=== PATIENT | female | born 1970 | race Caucasian/White ===

== ENCOUNTER 2023-07-12 14:56 | Emergency (ER) | payer MEDICAID, SELFPAY ==
--- NOTE | 2023-07-12 15:14 | CTR_ITS ---
PROCEDURE INFORMATION: Exam: CT Head Without Contrast Exam date and time: 07/12/2023 3:52 PM Age: 53 years old Clinical indication: Injury or trauma; Fall; Blunt trauma (contusions or hematomas); Additional info: Trauma/fall/headache TECHNIQUE: Imaging protocol: Computed tomography of the head without contrast. Radiation optimization: All CT scans at this facility use at least one of these dose optimization techniques: automated exposure control; mA and/or kV adjustment per patient size (includes targeted exams where dose is matched to clinical indication); or iterative reconstruction. COMPARISON: CT head wo con* [id number] 02/16/2017 12:57 PM RADIATION DOSE METRICS: Total DLP (mGy-cm): 1069 FINDINGS: Brain: No intracranial hemorrhage or hematoma is seen. No mass effect or shift of midline structures. Tiny focus of decreased attenuation right basal ganglia previously suggestive of prominent perivascular space is unchanged with prior exam of 2017. No findings to indicate territorial or large vessel ischemic infarct. Slight low-lying cerebellar tonsils as noted with prior exam. No significant change with prior exam. Cerebral ventricles: No significant ventriculomegaly. Paranasal sinuses: Visualized sinuses are unremarkable. No fluid levels. Mastoid air cells: Visualized mastoid air cells are well aerated. Bones/joints: No acute findings. Soft tissues: Unremarkable. CT/CT head wo con* [id number] IMPRESSION: No acute intracranial abnormality, and without acute change from prior exam.
--- NOTE | 2023-07-12 15:14 | CTR_ITS ---
PROCEDURE INFORMATION: Exam: CT Cervical Spine Without Contrast Exam date and time: 07/12/2023 3:52 PM Age: 53 years old Clinical indication: Injury or trauma; Fall; Blunt trauma; Additional info: Fall/head injury TECHNIQUE: Imaging protocol: Computed tomography of the cervical spine without contrast. Radiation optimization: All CT scans at this facility use at least one of these dose optimization techniques: automated exposure control; mA and/or kV adjustment per patient size (includes targeted exams where dose is matched to clinical indication); or iterative reconstruction. COMPARISON: CT head wo con* [id number] 07/12/2023 3:52 PM RADIATION DOSE METRICS: Total DLP (mGy-cm): 137 FINDINGS: Bones/joints: Cervical vertebral body heights appear maintained, as do disc spaces. Straightening of the cervical curvature is seen on the sagittal images. Alignment is otherwise unremarkable. Mild spondylotic change involving cervical vertebra. Cervical spinal canal is patent without significant or severe spinal stenosis. No fracture or subluxation. Lungs: Visualized lung apices appear unremarkable. Soft tissues: Paravertebral soft tissues show no significant abnormality. CT/CT cervical spin wo con* [id number] IMPRESSION: 1. Straightening of the cervical curvature on the sagittal images. This can be associated with muscle spasm/tension. 2. No fracture or subluxation.
[2023-07-12 15:15] VITALS: BP 121/79; PULSE 77; RESP 14; TEMP 36.3; O2SAT 96; BMI 20.2
[2023-07-12] MEDS: ondansetron 2 mg/ML SDV 2 mL 4 MG IM (15:28)
--- NOTE | 2023-07-12 15:38 | ED_ITS ---
HPI - Head Injury General: Chief complaint: Dizziness Stated complaint: hit head wednesday, headache Time Seen by Provider: 07/12/23 15:24 Source: patient Mode of arrival: ambulatory Limitations: no limitations History of Present Illness: Patient is a 53-year-old female presents to ED today for evaluation following a head injury. Patient states yesterday she was squatted down when she stood up and struck the right side of her forehead on a shelf. There was no LOC but patient states she did see stars afterwards. Patient states since then she has had a headache and some light sensitivity as well as nausea and dizziness. She has not had any vomiting. No visual changes. She does have a history of migraines. Denies neck pain. Patient is not on anticoagulation. MD Complaint: head injury Onset (ago): day(s) (yesterday) Mechanism of Injury: other (struck head on shelf) Place: home Loss of Consciousness: no Location of injury: frontal Severity: moderate Quality: burning Radiation: none Other Injuries: none Associated symptoms: Reports nausea; Deny confusion, neck pain or vomiting Review of Systems Const: Denies: fever(s), chills, body aches, fatigue or malaise Eyes: Reports: photophobia; Denies: change in vision, blurry vision, blind spots, floaters or seeing flashes Card: Denies: chest pain, palpitations or lightheadedness Resp: Denies: dyspnea GI: Reports: nausea; Denies: vomiting Musc: Denies: neck pain Neuro: Reports: headache(s) and dizziness; Denies: numbness in extremities, weakness in extremities, sensory changes, lack of coordination, difficulty walking, frequent falls, confusion, behavioral changes, Slurred speech present, difficulty communicating thoughts, seizure-like activity, involuntary movements or restless legs Physical Exam Const: COMMON NORMALS: no acute distress, average body habitus, patient oriented x3, no limitations, alert and well nourished GENERAL APPEARANCE: cooperative ORIENTATION/CONSCIOUSNESS: Yes awake, Yes oriented to person, Yes oriented to place and Yes oriented to time HENMT: COMMON NORMALS: normocephalic and atraumatic HEAD & SCALP: normal to inspection, normocephalic and atraumatic; no Alfonso's sign, no hematoma and no palpable skull fracture FACE & SINUS: normal facial exam Eye: COMMON NORMALS: Equal, round and reactive pupils present and EOMs intact bilaterally GENERAL EYE: appearance normal, both eyes and all related structures and normal light reflex PUPIL: Yes Equal, round and reactive pupils present DIRECT OPHTHALMOSCOPY: Yes normal light reflex Neck/C-Spine: COMMON NORMALS: full ROM GENERAL: Yes normal visual inspection CERVICAL SPINE: No Cervical spine tenderness Neuro: ISAIAS COMA SCALE: document GCS findings Isaias coma scale eye opening: Spontaneous Isaias coma scale verbal response: Orientated [place] coma scale motor response: Obey commands Isaias coma scale total score: 15 COMMON NORMALS: patient oriented x3, CN's II-XII intact bilaterally, moves all extremities, no focal motor deficits, no sensory deficits noted and gait normal SENSORIUM/ORIENTATION: Yes alert, Yes oriented to person, Yes oriented to place and Yes oriented to time Course Vital Signs: Vital signs: Vital Signs Temperature 97.3 F L 07/12/23 15:15 Pulse Rate 77 07/12/23 15:15 Respiratory Rate 14 07/12/23 15:15 Blood Pressure 121/79 07/12/23 15:15 Pulse Oximetry 96 07/12/23 15:15 Oxygen Delivery Me thod Room Air 07/12/23 15:15 MDM - Head Injury Medcial Decision Making Patient here with a minor head injury. CT head/cervical spine are negative. Patient has no neurologic deficits on physical exam. She will be allowed discharge. Requesting prescription for antiemetic medication which was provided. Return to precautions given. Differential Diagnosis Likely closed head injury and postconcussion syndrome Medical Records I reviewed the patient's medical records. Lab Data Radiology Impressions Cervical Spine CT 07/12/23 15:14 IMPRESSION: 1. Straightening of the cervical curvature on the sagittal images. This can be associated with muscle spasm/tension. 2. No fracture or subluxation. Head CT 07/12/23 15:14 IMPRESSION: No acute intracranial abnormality, and without acute change from prior exam. All radiology interpretation(s) finalized by discharge Discharge Plan Discharge Patient Disposition: Home Clinical Impression: Minor closed head injury Condition: Stable Prescriptions: New ondansetron 4 mg tablet,disintegrating 4 mg PO Q8H PRN (Reason: nausea and vomiting) Qty: 14 0RF No Action duloxetine 20 mg capsule,delayed release(DR/EC) 20 mg PO DAILY cyclobenzaprine 5 mg tablet 5 mg PO DAILY PRN acetaminophen [Tylenol Extra Strength] 500 mg tablet 500 mg PO QID PRN fluticasone propionate 50 mcg/actuation spray,suspension 1 spray intranasal DAILY PRN (Reason: allergy symptoms) Qty: 16 0RF Rx Instructions: administer into each nostril clindamycin HCl 300 mg capsule 300 mg PO Q8H 7 Days Qty: 21 0RF doxycycline hyclate 100 mg tablet 100 mg PO BID 7 Days Qty: 14 0RF Discharge Orders: Discharge ED (Routine); Ordered 07/12/23 Ordered By: Elaina Flynn Referrals: Patricia Good MD [Primary Care Provider] - Patient Instructions: Head Injury (DC) Coding Level of Care 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
--- NOTE | 2023-07-12 16:15 | PC.NURSE ---
Pt states she is feeling better after the nausea med
[2023-07-12 16:48] VITALS: BP 128/71; PULSE 71; RESP 18; O2SAT 96
== END 2023-07-12 16:48 | disposition home or self-care (01) ==
PROVIDERS: Emergency Provider Physician Assistant; PCP Family Medicine
DX: S09.8XXA Other specified injuries of head, initial encounter (principal); W22.8XXA Striking against or struck by other objects, initial encounter
CPT/HCPCS: 70450; 72125; 96372; 99284; J2405

== ENCOUNTER 2023-07-29 09:13 | Emergency (ER) | payer MEDICAID, SELFPAY ==
[2023-07-29 09:36] VITALS: BP 122/74; PULSE 65; RESP 18; TEMP 36.9; O2SAT 98; BMI 20.7
--- NOTE | 2023-07-29 10:02 | CT_ITS ---
WS: [id number] CT HEAD NONCONTRAST HISTORY: vance TECHNIQUE: Contiguous axial imaging performed through the brain in 2.5 mm imaging. Bone and soft tiss ue windows. Sagittal and coronal reformats reviewed. All CT scans at [facility] use at least one of these dose optimization techniques: automated exposure control; mA and/or kV adjustment per pa tient size (includes targeted exams where dose is matched to clinical indication); or iterative recon struction. DLP: 951.84 mGy.cm COMPARISON: 07/12/2023 No acute intracranial hemorrhage, midline shift or mass effect. Mild bifrontal lobe atrophy. No prior infarcts. There is a tiny lacunar infarct versus perivascular s pace along the RIGHT external capsule. Ventricles: Normal size with no hydrocephalus. Paranasal sinuses: As visualized are clear. Mastoid air cells: Well pneumatized. Calvarium and scalp: Skull is intact with no soft tissue edema or swelling. IMPRESSION: 1. No acute intracranial hemorrhage or edema. 2. Mild bifrontal lobe atrophy is unchanged. 3. No sinus disease.
--- NOTE | 2023-07-29 10:07 | ED_ITS ---
HPI - Head Injury General: Chief complaint: Head Injury Stated complaint: head pains, vomiting, dizzy Time Seen by Provider: 07/29/23 09:59 Source: patient Mode of arrival: ambulatory Limitations: no limitations History of Present Illness: 53-year-old female who states she hit he r head 2 weeks ago on a shelf she was seen here diagnosed with concussion states since she has been having ongoing headaches with photophobia and phonophobia states headaches currently a 5 out of 10 she had some nausea denies any vomiting denies any syncopal events. Denies pain elsewhere. Associated symptoms: Deny nausea, neck pain or vomiting Review of Systems Const: Denies: fever(s), chills, body aches or change in appetite ENMT: Denies: throat pain or dental pain Card: Denies: chest pain Resp: Denies: dyspnea GI: Denies: abdominal pain, nausea, vomiting or diarrhea Musc: Denies: neck pain or back pain Skin/Breast: Denies: rash Neuro: Reports: headache(s) Physical Exam Const: COMMON NORMALS: no acute distress, patient oriented x3 and healthy appearing HENMT: COMMON NORMALS: normocephalic and atraumatic HEAD & SCALP: normocephalic and atraumatic Eye: COMMON NORMALS: Equal, round and reactive pupils present and EOMs intact bilaterally PUPIL: Yes Equal, round and reactive pupils present Neck/C-Spine: COMMON NORMALS: full ROM Chest: COMMONS NORMALS: normal inspection of the chest Resp: COMMON NORMALS: normal respiratory effort Cardio: COMMON NORMALS: regular rate, regular rhythm and No murmurs present (Cardio) RATE: regular rate RHYTHM: regular rhythm Extremity: COMMON NORMALS: normal to inspection and full ROM Neuro: COMMON NORMALS: patient oriented x3, moves all extremities and no focal motor deficits Psych: COMMON NORMALS: mental status grossly normal, Normal thought process present and cooperative THOUGHT PROCESS: Normal thought process present Skin: COMMON NORMALS: no rashes or lesions noted and no wounds GENERAL SKIN EXAM: no rashes or lesions noted Course Vital Signs: Vital signs: Vital Signs Temperature 98.5 F 07/29/23 09:36 Pulse Rate 65 07/29/23 09:36 Respiratory Rate 18 07/29/23 09:36 Blood Pressure 122/74 07/29/23 09:36 Pulse Oximetry 98 07/29/23 09:36 Oxygen Delivery Me thod Room Air 07/29/23 09:36 MDM - Head Injury Medcial Decision Making Patient presents here with a headaches likely postconcussive headache. Head CT here shows no acute abnormality she has no signs of subarachnoid hemorrhage or meningitis she is stable for discharge follow-up with PCP and return if worsening. Medical Records I reviewed the patient's medical records. All radiology interpretation(s) finalized by discharge Discharge Plan Discharge Patient Disposition: Home Clinical Impression: Postconcussion syndrome Condition: Stable Prescriptions: New Reglan 10 mg tablet 10 mg PO Q6H PRN (Reason: nausea and vomiting) Qty: 20 0RF No Action duloxetine 20 mg capsule,delayed release(DR/EC) 20 mg PO DAILY cyclobenzaprine 5 mg tablet 5 mg PO DAILY PRN acetaminophen [Tylenol Extra Strength] 500 mg tablet 500 mg PO QID PRN fluticasone propionate 50 mcg/actuation spray,suspension 1 spray intranasal DAILY PRN (Reason: allergy symptoms) Qty: 16 0RF Rx Instructions: administer into each nostril clindamycin HCl 300 mg capsule 300 mg PO Q8H 7 Days Qty: 21 0RF doxycycline hyclate 100 mg tablet 100 mg PO BID 7 Days Qty: 14 0RF ondansetron 4 mg tablet,disintegrating 4 mg PO Q8H PRN (Reason: nausea and vomiting) Qty: 14 0RF Discharge Orders: Discharge ED (Routine); Ordered 07/29/23 Ordered By: Evon Beard Referrals: Patricia Good MD [Primary Care Provider] - 1-3 days Discharge Diet: Advance as tolerated Discharge Activity: Resume usual activity Patient Instructions: Concussion (ED) Coding Level of Care Code 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
[2023-07-29] MEDS: diphenhydrAMINE 50 mg/mL SDV 1mL IM (10:37)
[2023-07-29] MEDS: metoclopramide 5 mg/mL SDV 2 mL 10 MG IM (10:37)
[2023-07-29 11:07] VITALS: BP 99/63; RESP 15
== END 2023-07-29 11:07 | disposition home or self-care (01) ==
PROVIDERS: Emergency Provider Emergency Medicine; PCP Family Medicine
DX: F07.81 Postconcussional syndrome (principal)
CPT/HCPCS: 70450; 96372; 99284; J1200; J2765

== ENCOUNTER 2023-09-03 08:12 | Outpatient (CLI) | payer MEDICAID, SELFPAY ==
--- NOTE | 2023-09-03 08:18 | MR_ITS ---
WS: [id number] MRI HEAD WITHOUT CONTRAST TECHNIQUE: Sagittal T1, T2 axial, T2 axial FLAIR, axial and coronal T1 images, axial susceptibility w eighted imaging, axial diffusion weighted images, and coronal T2 images were obtained. CLINICAL INFORMATION: MEMORY LOSS/AMNESIA/HEADACHE/POSTCONCUSSIONAL SYNDROME COMPARISON: MRI 2007 FINDINGS: No evidence of restricted diffusion to suggest acute ischemia. Ventricular system and basal cisterns are patent. Mild patchy supratentorial white matter changes slightly progressed compared to 2007. Non specific in a patient of this age but can be seen with hypertension, diabetes, and migraine headaches . No significant parenchymal volume loss. Normal posterior fossa. Normal vascular flow voids at the s kull base. No extra-axial fluid collections. No evidence of mass or mass effect. Mild mucosal thicken ing in the paranasal sinuses. Mastoid air cells are well aerated. Temporal lobes and hippocampal formations are normal in appearance. No hemosiderin on the susceptibly weighted images. IMPRESSION: 1. No evidence of restricted diffusion to suggest acute ischemia. 2. Mild patchy supratentorial white matter changes nonspecific in a patient of this age but can be s een with hypertension, diabetes, and migraine headaches. This is slightly progressed compared to 2007 . 3. Temporal lobes and hippocampal formations normal in appearance. 4. No hemosiderin on the susceptibly weighted images.
== END 2023-09-03 08:13 | disposition home or self-care (01) ==
LOC: RAD 08:13
PROVIDERS: PCP Family Medicine; Visit Provider Family Medicine
DX: R41.3 Other amnesia (principal); R51.9 Headache, unspecified; F07.81 Postconcussional syndrome
CPT/HCPCS: 70551

== ENCOUNTER 2024-02-01 23:16 | Emergency (ER) | payer MEDICAID, SELFPAY ==
[2024-02-01 23:18] VITALS: BP 106/69; PULSE 61; RESP 18; TEMP 36.7; O2SAT 96; BMI 22.3
--- NOTE | 2024-02-01 23:31 | ECG_ITS ---
[facility] Test Date: 2024-02-01 Pat Name: Kimberly Anne Department: Room: Gender: Female Production Operator: : 1970 Requested By: Devang Almodovar Order Number: [id number] Lee MD: Augustine Vuong M.D. Measurements Intervals [facility] Rate: 64 P: 71 KS: 159 QRS: 70 QRSD: 76 T: 72 QT: 407 QTc: 420 Interpretive Statements SINUS RHYTHM POSSIBLE LEFT ATRIAL ENLARGEMENT [-0.1mV P-WAVE IN V1/V2] SEPTAL MYOCARDIAL INFARCTION , OF INDETERMINATE AGE [40+ ms Q WAVE IN V1/V2] Compared to ECG 06/27/2016 11:32:36 Myocardial infarct finding now present Electronically Signed On 02-03-2024 0:14:27 CDT by Augustine Vuong M.D. [email or web address]
--- NOTE | 2024-02-01 23:32 | XRR_ITS ---
PROCEDURE INFORMATION: Exam: XR Chest Exam date and time: 02/02/2024 12:21 AM Age: 53 years old Clinical indication: Wheezing; Additional info: Cp/sob TECHNIQUE: Imaging protocol: Radiologic exam of the chest. Views: 1 view. COMPARISON: CT cervical spin wo con* [id number] 07/12/2023 3:52 PM FINDINGS: Lungs: Suggestion of mild peribronchial cuffing which could represent mild bronchitis. Pleural spaces: Unremarkable. No pleural effusion. No pneumothorax. Heart/Mediastinum: Unremarkable. No cardiomegaly. Vasculature: The thoracic aorta is atherosclerotic. Bones/joints: There are degenerative changes of the spine and shoulder joints. Soft tissues: Mildly prominent opacities in the lower lobes could represent superimposition of breast shadows, atelectasis, inflammation, or subtle infection, in the appropriate clinical setting. Organs: Cholecystectomy clips are seen overlying the right hypochondrium. XR/XR chest 1V portable [id number] IMPRESSION: 1. Suggestion of mild peribronchial cuffing, which could represent mild bronchitis. 2. No pleural effusion. 3. No pneumothorax.
[2024-02-02] MEDS: lidocaine 2% viscous 15 ML, aluminum-mag hydrox-simethicon 30 ML, sucralfate oral liq 1 GM PO (00:04)
[2024-02-02 00:11] LABS: Basophils % 0.3 %; Eosinophils # 0.2 10^3/uL (0.0-0.8); Eosinophils % 1.8 %; Hematocrit 41.6 % (36-47); Lymphocytes # 3.2 10^3/uL (0.8-4.8); Mean Corpuscular HGB Conc 34.9 g/dL (30-55); Mean Corpuscular Hemoglobin 30.4 pg (27-33); Mean Corpuscular Volume 87.2 fl (85-98); Mean Platelet Volume 9.8 fL (7.4-10.4); Monocytes # 0.9 10^3/uL (0.2-0.9); Monocytes % 7.8 %; Neutrophils # 7.06 10^3/uL (1.8-7.7); Neutrophils % 61.8 %; Nucleated Red Blood Cells % 0 %; Platelet Count 283 10^3/cmm (157-399); Red Blood Count 4.77 10^6/uL (3.85-5.65); Red Cell Distribution Width 12.5 % (12.1-15.1); White Blood Count 11.45 10^3/uL (3.29-11.43)
--- NOTE | 2024-02-02 00:12 | ED_ITS ---
HPI - Chest Pain 2 General: Chief Complaint: Chest Pain Stated Complaint: CP Time Seen by Provider: 02/01/24 23:22 Source: patient Mode of arrival: EMS Limitations: no limitations History of Present Illness: Patient is a 53-year-old female presenting to the emergency department by ambulance for chest pain onset 1999 tonight. Patient states she was sitting in a recliner, when she had sudden onset of central chest pain that felt like a burning sensation and did radiate up towards her jaw. Also reports shortness of breath at that time. She says that the pain has been intermittent since onset. Currently she is asymptomatic at this time. She also notes periodic headaches. Patient reports a couple episodes of vomiting and nausea, was given 2 doses of Zofran by EMS. No personal history of heart attacks or strokes or other cardiac issues. She says she has not had any recent outpatient cardiac workup including stress test or echo. Does not see cardiology. No blood thinners. No other concerning historical elements to report at this time MD complaint: chest pain Onset (ago): hour(s) Timing of current episode: episodic Prior episodes: No Onset: during rest Pain location: substernal Pain radiation: jaw/teeth Quality: burning Relieving factors: nothing Exacerbating factors: nothing Associated symptoms: Reports dyspnea, nausea and vomiting; Deny abdominal pain, fever(s) or palpitations Treatment prior to arrival: other (Zofran) Related Data Home Medications Medication Instructions Recorded Confirmed acetaminophen 500 mg tablet 500 mg PO QID PRN 08/26/22 04/01/23 (Tylenol Extra Strength) cyclobenzaprine 5 mg tablet 5 mg PO DAILY PRN 08/26/22 04/01/23 duloxetine 20 mg capsule,delayed 20 mg PO DAILY 08/26/22 04/01/23 release Previous Rx's Medication Instructions Recorded fluticasone propionate 50 1 spray intranasal DAILY PRN 08/26/22 mcg/actuation nasal allergy symptoms #16 grams spray,suspension clindamycin HCl 300 mg capsule 300 mg PO Q8H 7 days #21 caps 04/01/23 doxycycline hyclate 100 mg tablet 100 mg PO BID 7 days #14 tabs 04/01/23 ondansetron 4 mg disintegrating 4 mg PO Q8H PRN nausea and 07/12/23 tablet vomiting #14 tabs metoclopramide HCl 10 mg tablet 10 mg PO Q6H PRN nausea and 07/29/23 (Reglan) vomiting #20 tabs Allergies Allergy/AdvReac Type Severity Reaction Status Date / Time aspirin Allergy ALGY-Hives Verified 02/01/24 23:27 morphine Allergy chest pains Verified 02/01/24 23:27 Penicillins Allergy shortness Verified 02/01/24 23:27 of breath Review of Systems 2 General: Reports: 10 or more systems reviewed and unremarkable except in HPI and below Const: Denies: fever(s), chills or fatigue Eyes: Denies: change in vision ENMT: Denies: throat pain, ear or mastoid pain or nasal discharge Card: Reports: chest pain; Denies: palpitations, swelling of feet/ankles or lightheadedness Resp: Reports: dyspnea; Denies: productive cough or wheezing GI: Reports: nausea and vomiting; Denies: abdominal pain, diarrhea or constipation : Denies: flank pain, difficulty voiding, dysuria or urinary frequency Musc: Denies: neck pain, back pain or joint pain Skin/Breast: Denies: rash Neuro: Reports: headache(s); Denies: numbness in extremities or weakness in extremities Physical Exam 2 Const: COMMON NORMALS: no acute distress, patient oriented x3 and no limitations GENERAL APPEARANCE: cooperative, well developed and anxious O RIENTATION/CONSCIOUSNESS: Yes awake, Yes oriented to person, Yes oriented to place and Yes oriented to time HENMT: COMMON NORMALS: normocephalic, atraumatic and hearing grossly normal bilaterally HEAD & SCALP: normocephalic and atraumatic Eye: COMMON NORMALS: Equal, round and reactive pupils present, EOMs intact bilaterally and conjunctivae normal CONJUNCTIVA: Yes conjunctivae normal P UPIL: Yes Equal, round and reactive pupils present Neck/C-Spine: COMMON NORMALS: full ROM, supple and no JVD Resp: COMMON NORMALS: normal respiratory effort, No retractions, No use of accessory muscles and clear to auscultation bilaterally AUSCULTATION: clear to auscultation bilaterally Cardio: COMMON NORMALS: no JVD, regular rate, regular rhythm, No clicks present (Cardio), No murmurs present (Cardio) and No rub (Cardio) RATE: r egular rate RHYTHM: regular rhythm GI: COMMON NORMALS: Normal to inspection, nondistended, normoactive bowel sounds present, Soft to palpation and non-tender AUSCULTATION: Yes normoactive bowel sounds PALPATION: Yes Soft to palpation RECTAL EXAM: d eferred Extremity: COMMON NORMALS: normal to inspection, full ROM and capillary refill normal Neuro: COMMON NORMALS: patient oriented x3, moves all extremities, no focal motor deficits and no sensory deficits noted SENSORIUM/ORIENTATION: Yes oriented to person, Yes oriented to place and Yes oriented to time Psych: COMMON NORMALS: mental status grossly normal and Normal thought process present THOUGHT PROCESS: Normal thought process present Skin: COMMON NORMALS: no rashes or lesions noted GENERAL SKIN EXAM: no rashes or lesions noted Course 2 Vital Signs: Vital signs: Vital Signs Temperature 98.0 F 02/01/24 23:18 Pulse Rate 71 02/02/24 00:35 Respiratory Rate 14 02/02/24 00:35 Blood Pressure 122/73 02/02/24 00:35 Pulse Oximetry 95 02/02/24 00:35 Oxygen Delivery Me thod Room Air 02/02/24 00:35 MDM - Chest Pain Medical Decision Making Patient called ambulance for chest pain tonight, onset seated not exerting herself. Associated with shortness of breath and other symptoms. Her vitals normal on arrival. Condition has remained stable throughout ED course. She was anxious on examination, rest of her exam was normal. EKG was obtained reviewed with Dr. Red and showed no acute STEMI, normal sinus rhythm. Chest x-ray was normal. All of her blood work was normal and her troponin was normal. She was given a GI cocktail and upon recheck states that her pain was gone. I do believe her pain to be from GERD, has a history of this and takes omeprazole. Encouraged her to double this dose until she follows up with her primary care provider for reevaluation and further outpatient cardiac workup. She was very anxious upon discharge and began asking of several issues going wrong with her, did encourage her to take meclizine for vertigo as this was her primary complaint. Also encouraged her to talk to her primary care in regards to anxiety. However still provided reasons to return and strict return precautions were given in regards to recurrence of chest pain or other associated symptoms. This case was discussed with Dr. Red who agrees with disposition at this time. Lab Data 02/01/24 23:49 02/01/24 23:49 Laboratory Results WBC 11.45 10^3/uL (3.29-11.43) H 02/01/24 23:49 RBC 4.77 10^6/uL (3.85-5.65) 02/01/24 23:49 Hgb 14.50 g/dL (11.27-16.99) 02/01/24 23:49 Hct 41.6 % (36-47) 02/01/24 23:49 MCV 87.2 fl (85-98) 02/01/24 23:49 MCH 30.4 pg (27-33) 02/01/24 23:49 MCHC 34.9 g/dL (30-55) 02/01/24 23:49 RDW 12.5 % (12.1-15.1) 02/01/24 23:49 Plt Count 283 10^3/cmm (157-399) 02/01/24 23:49 MPV 9.8 fL (7.4-10.4) 02/01/24 23:49 Neut % (Auto) 61.8 % 02/01/24 23:49 Lymph % (Auto) 28.0 % 02/01/24 23:49 [place] % (Auto) 7.8 % 02/01/24 23:49 Eos % (Auto) 1.8 % 02/01/24 23:49 Baso % (Auto) 0.3 % 02/01/24 23:49 Neut # (Auto) 7.06 10^3/uL (1.8-7.7) 02/01/24 23:49 Lymph # (Auto) 3.2 10^3/uL (0.8-4.8) 02/01/24 23:49 [place] # (Auto) 0.9 10^3/uL (0.2-0.9) 02/01/24 23:49 Eos # (Auto) 0.2 10^3/uL (0.0-0.8) 02/01/24 23:49 Baso # (Auto) 0.0 10^3/uL (0.0-0.1) 02/01/24 23:49 Nucleated RBC % (auto) 0 % 02/01/24 23:49 Nucleated RBCs # 0.0 /100WBC 02/01/24 23:49 Sodium 143 mmol/L (136-145) 02/01/24 23:49 Potassium 4.2 mmol/L (3.5-5.1) 02/01/24 23:49 Chloride 108 mmol/L (98-107) H 02/01/24 23:49 Carbon Dioxide 23 mmol/L (22-29) 02/01/24 23:49 Anion Gap 16.2 (5-19) 02/01/24 23:49 BUN 7 mg/dL (6-20) 02/01/24 23:49 Creatinine 0.5 mg/dL (0.5-0.9) 02/01/24 23:49 GFR Calculation 129.1 mL/min (90-130) 02/01/24 23:49 Glucose 110 mg/dL (65-115) 02/01/24 23:49 Calculated Osmolality 295 mOsm/kg (285-295) 02/01/24 23:49 Calcium 9.1 mg/dL (8.5-10.5) 02/01/24 23:49 Total Bilirubin 0.2 mg/dL (0.15-1.2) 02/01/24 23:49 AST 15 U/L (0-32) 02/01/24 23:49 ALT 13 U/L (0-33) 02/01/24 23:49 Alkaline Phosphatase 110 U/L (35-105) H 02/01/24 23:49 Troponin T Baseline < 6 ng/L (0-10) 02/01/24 23:49 Total Protein 6.4 g/dL (6.6-8.7) L 02/01/24 23:49 Albumin 4.5 g/dL (3.5-5.2) 02/01/24 23:49 Globulin 1.9 g/dL (1.3-4.6) 02/01/24 23:49 Amorphous Sediment Not Reportable 02/02/24 00:04 XR interpretation done by ED provider, pending radiology final review ED provider radiology interpretation(s): No acute cardiopulmonary process on chest x-ray. Discharge Plan Discharge Patient Disposition: Home Clinical Impression: Anxiety Acid reflux Qualifiers: Esophagitis presence: esophagitis presence not specified Qualified Code(s): K 21.9 - Gastro-esophageal reflux disease without esophagitis Condition: Stable Prescriptions: No Action duloxetine 20 mg capsule,delayed release(DR/EC) 20 mg PO DAILY cyclobenzaprine 5 mg tablet 5 mg PO DAILY PRN acetaminophen [Tylenol Extra Strength] 500 mg tablet 500 mg PO QID PRN fluticasone propionate 50 mcg/actuation spray,suspension 1 spray intranasal DAILY PRN (Reason: allergy symptoms) Qty: 16 0RF Rx Instructions: administer into each nostril clindamycin HCl 300 mg capsule 300 mg PO Q8H 7 Days Qty: 21 0RF doxycycline hyclate 100 mg tablet 100 mg PO BID 7 Days Qty: 14 0RF Reglan 10 mg tablet 10 mg PO Q6H PRN (Reason: nausea and vomiting) Qty: 20 0RF ondansetron 4 mg tablet,disintegrating 4 mg PO Q8H PRN (Reason: nausea and vomiting) Qty: 14 0RF Discharge Orders: Discharge ED (Routine); Ordered 02/02/24 Ordered By: Devang Goddard Referrals: Patricia Good MD [Primary Care Provider] - Discharge Diet: As Directed Discharge Activity: Increase activity as tolerated Patient Instructions: GERD (Gastroesophageal Reflux Disease) (ED) Activity Restrictions/Additional Instructions: Do not lie flat for at least 2 hours after eating. Double your omeprazole. Take meclizine for any vertigo. Please follow-up with primary care provider for further outpatient workup. Return if you develop any worsening of chest pain, or other concerning symptoms you may have. Coding Level of Care Code ED Chief Ultrasound Technologist for [facility]
[2024-02-02 00:23] LABS: Troponin(5th) Baseline < 6 ng/L (0-10)
[2024-02-02 00:25] LABS: Alanine Aminotransferase 13 U/L (0-33); Albumin Level 4.5 g/dL (3.5-5.2); Alkaline Phosphatase 110 U/L (35-105); Aspartate Amino Transferase 15 U/L (0-32); Blood Urea Nitrogen 7 mg/dL (6-20); Calcium 9.1 mg/dL (8.5-10.5); Carbon Dioxide 23 mmol/L (22-29); Chloride 108 mmol/L (98-107); Creatinine Clr Calc Pharmacy 102.8924; Globulin 1.9 g/dL (1.3-4.6); Glomerular Filtration Rate 129.1 mL/min (90-130); Glucose 110 mg/dL (65-115); Osmolality Calculated 295 mOsm/kg (285-295); Sodium 143 mmol/L (136-145); Total Bilirubin 0.2 mg/dL (0.15-1.2); Total Protein 6.4 g/dL (6.6-8.7)
[2024-02-02 00:27] LABS: Anion Gap 16.2 (5-19); Potassium 4.2 mmol/L (3.5-5.1)
[2024-02-02 00:35] VITALS: BP 122/73; PULSE 71; RESP 14; O2SAT 95
[2024-02-02 00:43] LABS: Charge for UA Resulting for Rev
[2024-02-02 01:01] LABS: Bacteria Urine None Seen /hpf; Hyaline Casts Urine 0-4 /lpf; RBC Urine 0-2 /hpf (0-2); Squamous Epithelial Cell Urine 0-5 /hpf (0-5); WBC Urine 0-5 /hpf (0-5)
[2024-02-02 01:13] VITALS: BP 115/78; PULSE 76; RESP 14; O2SAT 96
[2024-02-02 01:17] VITALS: BP 115/78; PULSE 76; RESP 14; TEMP 36.7; O2SAT 96
[2024-02-02 01:26] LABS: Bilirubin Urine Negative (Negative); Blood Urine Trace (Negative); Glucose Urine UA Negative (Normal); Ketones Urine Negative (Negative); Leukocyte Esterase Urine Trace (Negative); Nitrate Urine Negative (Negative); Protein Urine Negative (Negative); Specific Gravity, Urine 1.002 (1.005-1.030); Urine Appearance Clear (CLEAR); Urine Color Yellow (Yellow); Urobilinogen Urine 0.2 mg/dL (Negative)
== END 2024-02-02 01:18 | disposition home or self-care (01) ==
PROVIDERS: Emergency Provider Physician Assistant; PCP Family Medicine
DX: K21.9 Gastro-esophageal reflux disease without esophagitis (principal); F41.9 Anxiety disorder, unspecified
CPT/HCPCS: 36415; 71045; 80053; 81003; 81015; 84484; 85025; 93005; 99285

== ENCOUNTER 2024-04-16 14:04 | Emergency (ER) | payer MEDICAID, SELFPAY ==
[2024-04-16 14:08] VITALS: BP 135/81; PULSE 108; RESP 20; TEMP 36.9; O2SAT 96; BMI 21.9
--- NOTE | 2024-04-16 14:30 | ED_ITS ---
HPI - Abdominal Pain 2 General: Chief Complaint: Abdominal Pain Stated Complaint: pooping out black stools, severe pain Time Seen by Provider: 04/16/24 14:29 History of Present Illness: 54-year-old female comes in today with s ome dark stools. Patient reports has black in texture and constipation. Patient is been having some left lower abdominal pain radiating to the rectum. Patient has a history of colon cancer with bowel resection in 2001. Patient has had her gallbladder removed. Patient has a history of fibromyalgia. Patient had a recent EGD that showed hiatal hernia but no other abnormalities. Patient is due for a colonoscopy. Patient reports that she had flulike symptoms about 1 week ago with nausea vomiting and diarrhea. Patient reports that she has had poor oral intake since then and has used Pepto dismal routinely. Patient reports today she did have an episode of emesis and worsening abdominal pain. Associated Symptoms: Reports change in stool character and constipation Related Data Home Medications Medication Instructions Recorded Confirmed acetaminophen 500 mg tablet 500 mg PO QID PRN Pain 08/26/22 04/16/24 (Tylenol Extra Strength) cyclobenzaprine 5 mg tablet 5 mg PO DAILY PRN Muscle Spasm 08/26/22 04/16/24 duloxetine 20 mg capsule,delayed 20 mg PO DAILY 08/26/22 04/16/24 release aripiprazole 2 mg tablet 2 mg PO DAILY 04/16/24 04/16/24 pantoprazole 40 mg tablet,delayed 40 mg PO DAILY 04/16/24 04/16/24 release sumatriptan succinate 100 mg tablet 100 mg PO DAILY PRN Migraine 04/16/24 04/16/24 Headache Previous Rx's Medication Instructions Recorded ondansetron 4 mg disintegrating 4 mg PO Q8H PRN nausea and 07/12/23 tablet vomiting #14 tabs hyoscyamine sulfate 0.125 mg tablet 0.125 mg PO TID PRN abdominal 04/16/24 discomfort #10 tabs ondansetron 4 mg disintegrating 4 mg PO Q8H PRN nausea and 04/16/24 tablet vomiting #10 tabs Allergies Allergy/AdvReac Type Severity Reaction Status Date / Time aspirin Allergy ALGY-Hives Verified 04/16/24 14:12 Iodinated Contrast Media Allergy ALGY-Anaphy Verified 04/16/24 14:12 laxis morphine Allergy chest pains Verified 04/16/24 14:12 Penicillins Allergy shortness Verified 04/16/24 14:12 of breath Review of Systems 2 General: Reports: 10 or more systems reviewed and unremarkable except in HPI and below GI: Reports: abdominal pain, constipation and change in stool character Physical Exam 2 Const: COMMON NORMALS: alert HENMT: COMMON NORMALS: normocephalic HEAD & SCALP: normocephalic Neck/C-Spine: COMMON NORMALS: full ROM Resp: COMMON NORMALS: normal respiratory effort Cardio: COMMON NORMALS: regular rate and regular rhythm RATE: regular rate RHYTHM: regular rhythm GI: COMMON NORMALS: Soft to palpation PALPATION: Yes Soft to palpation Back/Pelvis: COMMON NORMALS: thoracic and lumbar spine normal to inspection Extremity: COMMON NORMALS: full ROM Neuro: SENSORIUM/ORIENTATION: Yes alert Skin: COMMON NORMALS: turgor normal GENERAL SKIN EXAM: turgor normal Course 2 Vital Signs: Vital signs: Vital Signs Temperature 98.4 F 04/16/24 14:08 Pulse Rate 98 04/16/24 14:55 Respiratory Rate 20 H 04/16/24 14:08 Blood Pressure 135/81 04/16/24 14:08 Pulse Oximetry 94 04/16/24 14:55 Oxygen Delivery Me thod Room Air 04/16/24 14:55 MDM - Abdominal Pain Medical Decision Making 54-year-old female comes in today with left lower quadrant abdominal pain radiating into the rectum. Patient reports some hard stool that are black in color. Patient appears nontoxic. Abdomen is flat and soft with some left lower quadrant abdominal tenderness. Bowel sounds are decreased. Vital signs are normal. Differential diagnosis includes constipation, adverse drug effect, diverticulitis, bowel obstruction, hemorrhoids. Rectal exam noted no hemorrhoids. CBC CMP was unremarkable. CT of the abdomen noted some mild constipation and a mild ileus. Patient was recommended to drink plenty of fluids and use a stool softener to help with constipation. Also recommended increasing activity to help with passing of gas. Patient was given some hyoscyamine to help with stomach spasms and Zofran to help with nausea. Patient was recommended to return to the ER for fever greater than 101, inability to hold fluids down, or no urine output within 8 to 12 hours. Patient reported understanding. Lab Data 04/16/24 14:25 04/16/24 14:25 Labs/Radiology: Radiology Impressions Abdomen/Pelvis CT 04/16/24 14:39 IMPRESSION: 1. Possible mild constipation. 2. Slightly prominent small bowel loops with air-fluid levels. Possible mild ileus. 3. Linear bilateral lower chest pulmonary atelectasis, or scarring. Left lung volume loss. 4. Left nonobstructing nephrolithiasis. 5. Degenerative and postsurgical changes are demonstrated, as described above. Laboratory Results WBC 10.88 10^3/uL (3.29-11.43) 04/16/24 14:25 RBC 5.05 10^6/uL (3.85-5.65) 04/16/24 14:25 Hgb 15.00 g/dL (11.27-16.99) 04/16/24 14:25 Hct 44.5 % (36-47) 04/16/24 14:25 MCV 88.1 fl (85-98) 04/16/24 14:25 MCH 29.7 pg (27-33) 04/16/24 14:25 MCHC 33.7 g/dL (30-55) 04/16/24 14:25 RDW 12.6 % (12.1-15.1) 04/16/24 14:25 Plt Count 332 10^3/cmm (157-399) 04/16/24 14:25 MPV 9.7 fL (7.4-10.4) 04/16/24 14:25 Neut % (Auto) 66.1 % 04/16/24 14:25 Lymph % (Auto) 26.0 % 04/16/24 14:25 [place] % (Auto) 6.9 % 04/16/24 14:25 Eos % (Auto) 0.4 % 04/16/24 14:25 Baso % (Auto) 0.3 % 04/16/24 14:25 Neut # (Auto) 7.20 10^3/uL (1.8-7.7) 04/16/24 14:25 Lymph # (Auto) 2.8 10^3/uL (0.8-4.8) 04/16/24 14:25 [place] # (Auto) 0.8 10^3/uL (0.2-0.9) 04/16/24 14:25 Eos # (Auto) 0.0 10^3/uL (0.0-0.8) 04/16/24 14:25 Baso # (Auto) 0.0 10^3/uL (0.0-0.1) 04/16/24 14:25 Nucleated RBC % (auto) 0 % 04/16/24 14:25 Nucleated RBCs # 0.0 /100WBC 04/16/24 14:25 PT 12.80 SECONDS (12.1-14.9) 04/16/24 14:25 INR 0.93 (0.8-1.2) 04/16/24 14:25 Sodium 139 mmol/L (136-145) 04/16/24 14:25 Potassium 4.1 mmol/L (3.5-5.1) 04/16/24 14:25 Chloride 102 mmol/L (98-107) 04/16/24 14:25 Carbon Dioxide 23 mmol/L (22-29) 04/16/24 14:25 Anion Gap 18.1 (5-19) 04/16/24 14:25 BUN 9 mg/dL (6-20) 04/16/24 14:25 Creatinine 0.5 mg/dL (0.5-0.9) 04/16/24 14:25 GFR Calculation 128.6 mL/min (90-130) 04/16/24 14:25 Glucose 118 mg/dL (65-115) H 04/16/24 14:25 Calculated Osmolality 288 mOsm/kg (285-295) 04/16/24 14:25 Calcium 8.8 mg/dL (8.5-10.5) 04/16/24 14:25 Total Bilirubin 0.6 mg/dL (0.15-1.2) 04/16/24 14:25 AST 24 U/L (0-32) 04/16/24 14:25 ALT 19 U/L (0-33) 04/16/24 14:25 Alkaline Phosphatase 116 U/L (35-105) H 04/16/24 14:25 Total Protein 6.8 g/dL (6.6-8.7) 04/16/24 14:25 Albumin 4.7 g/dL (3.5-5.2) 04/16/24 14:25 Globulin 2.1 g/dL (1.3-4.6) 04/16/24 14:25 Lipase 15 U/L (13-60) 04/16/24 14:25 All radiology interpretation(s) finalized by discharge Discharge Plan Discharge Patient Disposition: Home Clinical Impression: Abdominal pain Qualifiers: Abdominal location: left lower quadrant Qualified Code(s): R10.32 - Left lower quadrant pain Constipation Qualifiers: Constipation type: unspecified constipation type Qualified Code(s): K59.00 - Constipation, unspecified Condition: Stable Prescriptions: New hyoscyamine sulfate 0.125 mg tablet 0.125 mg PO TID PRN (Reason: abdominal discomfort) Qty: 10 0RF ondansetron 4 mg tablet,disintegrating 4 mg PO Q8H PRN (Reason: nausea and vomiting) Qty: 10 0RF No Action duloxetine 20 mg capsule,delayed release(DR/EC) 20 mg PO DAILY cyclobenzaprine 5 mg tablet 5 mg PO DAILY PRN (Reason: Muscle Spasm) acetaminophen [Tylenol Extra Strength] 500 mg tablet 500 mg PO QID PRN (Reason: Pain) sumatriptan succinate 100 mg tablet 100 mg PO DAILY PRN (Reason: Migraine Headache) pantoprazole 40 mg tablet,delayed release (DR/EC) 40 mg PO DAILY aripiprazole 2 mg tablet 2 mg PO DAILY ondansetron 4 mg tablet,disintegrating 4 mg PO Q8H PRN (Reason: nausea and vomiting) Qty: 14 0RF Discharge Orders: Discharge ED (Routine); Ordered 04/16/24 Ordered By: Iván Tsang Referrals: Patricia Good MD [Primary Care Provider] - Discharge Diet: Usual diet Discharge Activity: Increase activity as tolerated Patient Instructions: Abdominal Pain (ED) Activity Restrictions/Additional Instructions: Home and rest. Use medication for nausea. Drink plenty of water and fluids. Try to increase her diet to a bland diet with plenty of apples, and bananas, toast, rice, and boiled chicken. Try to increase activity to help with gas passing. Use a stool softener to help with constipation. Follow-up with primary care in 2 to 3 days for recheck. Return to ED for worsening symptoms such as fever greater than 101, inability to hold fluids down, and no urine output within 8 hours. Coding Level of Care Code ED Heat Treat Inspector for [facility]
[2024-04-16 14:35] LABS: Basophils % 0.3 %; Eosinophils % 0.4 %; Hematocrit 44.5 % (36-47); Lymphocytes # 2.8 10^3/uL (0.8-4.8); Mean Corpuscular HGB Conc 33.7 g/dL (30-55); Mean Corpuscular Hemoglobin 29.7 pg (27-33); Mean Corpuscular Volume 88.1 fl (85-98); Mean Platelet Volume 9.7 fL (7.4-10.4); Monocytes # 0.8 10^3/uL (0.2-0.9); Monocytes % 6.9 %; Neutrophils % 66.1 %; Nucleated Red Blood Cells % 0 %; Platelet Count 332 10^3/cmm (157-399); Red Blood Count 5.05 10^6/uL (3.85-5.65); Red Cell Distribution Width 12.6 % (12.1-15.1); White Blood Count 10.88 10^3/uL (3.29-11.43)
--- NOTE | 2024-04-16 14:39 | CTR_ITS ---
PROCEDURE INFORMATION: Exam: CT Abdomen And Pelvis Without Contrast Exam date and time: 04/16/2024 4:16 PM Age: 54 years old Clinical indication: Abdominal pain; Localized; Lower; Prior surgery; Surgery date: 6+ months; Surgery type: Colon; Additional info: Lower abd pain TECHNIQUE: Imaging protocol: Computed tomography of the abdomen and pelvis without contrast. Radiation optimization: All CT scans at this facility use at least one of these dose optimization techniques: automated exposure control; mA and/or kV adjustment per patient size (includes targeted exams where dose is matched to clinical indication); or iterative reconstruction. COMPARISON: CR (CHEST, ) 02/02/2024 12:21 AM RADIATION DOSE METRICS: Total DLP (mGy-cm): 350.93 FINDINGS: Lungs: Linear density identified within bilateral lower lungs. Diaphragm: Elevation of the left hemidiaphragm is demonstrated. Liver: Unremarkable. No mass. Gallbladder and biliary ducts: The gallbladder has been surgically removed. Surgical clips identified in the gallbladder fossa. Post cholecystectomy common biliary duct ectasia. If clinically indicated, consider correlation with liver function tests. Pancreas: Unremarkable. Spleen: Unremarkable. No splenomegaly. Adrenal glands: Normal. No mass. Kidneys and ureters: Left nephrolithiasis is demonstrated. Calculus measurement and location: Punctate 1 mm lower pole left renal calculus on coronal image 21. The visualized kidneys appear otherwise unremarkable. No visualized renal hydronephrosis. No visualized obstructing ureteral calculus. Stomach and bowel: Evidence for sigmoid partial colectomy with distal colonic anastomosis in the pelvis region. Possible mild increased volume of colonic fecal material identified throughout the colon. Slightly prominent small bowel loops with air-fluid levels in the abdomen or pelvis. No definite transition or obstruction. The bowel appears otherwise unremarkable. Appendix: The visualized appendix appears unremarkable. Intraperitoneal space: No free air. No significant fluid collection. Vasculature: Mild atherosclerotic calcification demonstrated within the aorta. Mild atherosclerotic arterial vascular wall calcifications are demonstrated. Lymph nodes: No enlarged lymph nodes. Urinary bladder: Unremarkable as visualized. Reproductive: Unremarkable as visualized. Bones/joints: Surgical clips in the left upper pelvis region and midline central pelvis. Moderate to severe degenerative disc disease in the lumbar sacral spine. Disc and osteophyte complexes with mild to moderate central canal and foraminal narrowing within the lumbar sacral junction. Soft tissues: Unremarkable. Other findings: Limited study with motion artifact. CT/CT abdomen pelvis wo con [id number] IMPRESSION: 1. Possible mild constipation. 2. Slightly prominent small bowel loops with air-fluid levels. Possible mild ileus. 3. Linear bilateral lower chest pulmonary atelectasis, or scarring. Left lung volume loss. 4. Left nonobstructing nephrolithiasis. 5. Degenerative and postsurgical changes are demonstrated, as described above.
[2024-04-16 14:49] LABS: INR 0.93 (0.8-1.2)
[2024-04-16] MEDS: fentaNYL 50 mcg/mL INJ 2mL IVP (14:50)
[2024-04-16] MEDS: ondansetron 2 mg/ML SDV 2 mL 4 MG IVP (14:50)
[2024-04-16] MEDS: sodium chloride 0.9% 1,000 ML 999 ML IV (14:50)
[2024-04-16 14:55] VITALS: PULSE 98; O2SAT 94
[2024-04-16 14:56] LABS: Alanine Aminotransferase 19 U/L (0-33); Albumin Level 4.7 g/dL (3.5-5.2); Alkaline Phosphatase 116 U/L (35-105); Aspartate Amino Transferase 24 U/L (0-32); Blood Urea Nitrogen 9 mg/dL (6-20); Calcium 8.8 mg/dL (8.5-10.5); Carbon Dioxide 23 mmol/L (22-29); Chloride 102 mmol/L (98-107); Globulin 2.1 g/dL (1.3-4.6); Glomerular Filtration Rate 128.6 mL/min (90-130); Glucose 118 mg/dL (65-115); Lipase 15 U/L (13-60); Osmolality Calculated 288 mOsm/kg (285-295); Sodium 139 mmol/L (136-145); Total Bilirubin 0.6 mg/dL (0.15-1.2); Total Protein 6.8 g/dL (6.6-8.7)
[2024-04-16 14:57] LABS: Anion Gap 18.1 (5-19); Potassium 4.1 mmol/L (3.5-5.1)
[2024-04-16 16:20] VITALS: BP 148/65; PULSE 70; O2SAT 99
== END 2024-04-16 16:21 | disposition home or self-care (01) ==
PROVIDERS: Emergency Medicine; Emergency Provider Nurse Practitioner Family; PCP Family Medicine
DX: R10.32 Left lower quadrant pain (principal); K59.00 Constipation, unspecified; Z85.038 Personal history of other malignant neoplasm of large intestine
CPT/HCPCS: 74176; 80053; 83690; 85025; 85610; 96374; 96375; 99285; J2405; J3010; J7030

== ENCOUNTER 2024-11-15 22:35 | Emergency (ER) | payer MEDICAID, SELFPAY ==
[2024-11-15 22:40] VITALS: BP 129/75; PULSE 74; RESP 16; TEMP 36.3; O2SAT 98
--- NOTE | 2024-11-15 22:46 | ED_ITS ---
HPI - Animal Bite General: Chief Complaint: Animal Bite Stated Complaint: cat bite on right hand Time Seen by Provider: 11/15/24 22:43 Source: patient Mode of arrival: ambulatory Limitations: no limitations History of Present Illness: Patient is a 54-year-old female presents to ED today for patient following a cat bite to her right wrist that she sustained just prior to arrival. She states the cat was a breeding Siamese cat and up-to-date on immunizations. Patient's tetanus was approximately 5 to 6 years ago. She has noticed some mild edema surrounding some of the bites. She has not noticed any redness or streaking. MD complaint: animal bite Onset (ago): hour(s) Animal: cat Description of animal: household pet, immunizations UTD and appeared well Mechanism: bite Context: playing with animal Associated symptoms: Reports no associated symptoms; Deny fever(s) Related Data Home Medications ?Medication ?Instructions ?Recorded ?Confirmed acetaminophen 500 mg tablet 500 mg PO QID PRN Pain 05/26/24 (Tylenol Extra Strength) cyclobenzaprine 5 mg tablet 5 mg PO DAILY PRN Muscle S pasm 08/26/22 05/26/24 duloxetine 20 mg capsule,delayed 20 mg PO DAILY 05/26/24 release aripiprazole 2 mg tablet 2 mg PO DAILY 04/16/2405/26 pantoprazole 40 mg tablet,delayed 40 mg PO DAILY 04/1605/26/24 release sumatriptan succinate 100 mg tablet 100 mg PO DAILY GA N Migraine 04/16/24 05/26/24 Headache Previous Rx's ?Medication ?Instructions ?Recorded ondansetron 4 mg disintegrating 4 mg PO Q8H PRN nausea and 07/12/23 tablet vomiting #14 tabs hyoscyamine sulfate 0.125 mg tablet 0.125 mg PO TID GA N abdominal 04/16/24 discomfort #10 tabs ondansetron 4 mg disintegrating 4 mg PO Q8H PRN nausea and 04/16/24 tablet vomiting #10 tabs albuterol sulfate 90 mcg/actuation 2 puff inhalation Q 6H PRN 05/26/24 aerosol inhaler (Ventolin HFA) shortness of breath or wheezing #8.5 grams levofloxacin 750 mg tablet 750 mg PO DAILY #7 tabs prednisone 20 mg tablet 40 mg (2 x 20 mg) PO DAILY # 10 tabs 05/26/24 cefuroxime axetil 500 mg tablet 500 mg PO BID 10 days #20 tabs 11/15/24 metronidazole 500 mg tablet 500 mg PO TID 10 days #30 tabs 11/15/24 Allergies Allergy/AdvReac Type Severity Reaction Status Date / Time Iodinated Contrast Media Allergy ALGY-Anaphy Verified 11/15/24 22:45 laxis morphine Allergy chest pains Verified 11/15/24 22:45 Penicillins Allergy shortness Verified 11/15/24 22:45 of breath Review of Systems Const: Denies: fever(s) Musc: Reports: extremity pain and extremity swelling; Denies: joint pain or joint swelling Skin/Breast: Reports: other (cat bites/puncture wounds) [facility] ED PFSH: Social History Smoking and tobacco/nicotine status: unknown if used tobacco/nicotine Physical Exam Const: COMMON NORMALS: no acute distress, average body habitus, no limitations, healthy appearing, alert and well nourished Extremity: COMMON NORMALS: full ROM and capillary refill normal GENERAL: Yes normal exam except as noted RIGHT UPPER EXTREMITY: Yes wrist (multiple small puncture wounds to dorsal/volar R wrist; edema dorsally) Right wrist: Yes ROM (normal), Yes neurovascular exam (normal) and Yes other (no streaking; no obvious tendon involvement) Neuro: COMMON NORMALS: moves all extremities, no focal motor deficits and no sensory deficits noted SENSORIUM/ORIENTATION: Yes alert Skin: NARRATIVE SKIN EXAM: Multiple puncture wounds from cat bites near right wrist Course Vital Signs: Vital signs: Vital Signs Temperature 97.4 F L 11/15/24 22:40 Pulse Rate 74 11/15/24 22:40 Respiratory Rate 16 11/15/24 22:40 Blood Pressure 129/75 11/15/24 22:40 Pulse Oximetry 98 11/15/24 22:40 Oxygen Delivery Me thod Room Air 11/15/24 22:40 MDM - Animal Bite Medical Decision Making Wounds were copiously irrigated. They will be left open. She has an allergy to penicillins. Will place her on appropriate alternative antibiotics. Discussed thoroughly signs and symptoms of infection that should prompt medical re- evaluation. Her tetanus is up-to-date. Cat is up-to-date on immunizations as well. Differential Diagnosis Likely cat bite Medical Records I reviewed the patient's medical records. No radiology studies performed this visit Discharge Plan Discharge Patient Disposition: Home Clinical Impression: Cat bite Qualifiers: Encounter type: initial encounter Qualified Code(s): W55.01XA - Bitten by cat, initial encounter Condition: Stable Prescriptions: New cefuroxime axetil 500 mg tablet 500 mg PO BID 10 Days Qty: 20 0RF metronidazole 500 mg tablet 500 mg PO TID 10 Days Qty: 30 0RF No Action duloxetine 20 mg capsule,delayed release(DR/EC) 20 mg PO DAILY cyclobenzaprine 5 mg tablet 5 mg PO DAILY PRN (Reason: Muscle Spasm) acetaminophen [Tylenol Extra Strength] 500 mg tablet 500 mg PO QID PRN (Reason: Pain) prednisone 20 mg tablet 40 mg PO DAILY Qty: 10 0RF levofloxacin 750 mg tablet 750 mg PO DAILY Qty: 7 0RF albuterol sulfate [Ventolin HFA] 90 mcg/actuation HFA aerosol inhaler 2 puff inhalation Q6H PRN (Reason: shortness of breath or wheezing) Qty: 8.5 0RF sumatriptan succinate 100 mg tablet 100 mg PO DAILY PRN (Reason: Migraine Headache) pantoprazole 40 mg tablet,delayed release (DR/EC) 40 mg PO DAILY aripiprazole 2 mg tablet 2 mg PO DAILY hyoscyamine sulfate 0.125 mg tablet 0.125 mg PO TID PRN (Reason: abdominal discomfort) Qty: 10 0RF ondansetron 4 mg tablet,disintegrating 4 mg PO Q8H PRN (Reason: nausea and vomiting) Qty: 10 0RF ondansetron 4 mg tablet,disintegrating 4 mg PO Q8H PRN (Reason: nausea and vomiting) Qty: 14 0RF Discharge Orders: Discharge ED (Routine); Ordered 11/15/24 Ordered By: Elaina Flynn Patient Instructions: Animal Bite (ED) Activity Restrictions/Additional Instructions: As we discussed, copiously irrigate wounds 2-3 times daily with warm soap and water. Begin your antibiotics immediately. You were given a dose tonight before discharge. Monitor symptoms very closely for signs of infection such as worsening pain, swelling, red streaking up your arm, fevers, wound drainage, or any other concerns you may have. Please seek medical reevaluation if these occur. Print Language: Polish Coding Level of Care Code ED [employer] Ac[employer] Director for [facility]
[2024-11-15] MEDS: metroNIDAZOLE 500 MG Tablet PO (23:43)
[2024-11-15] MEDS: cefUROXime 250 mg Tablet 500 MG PO (23:43)
[2024-11-15 23:51] VITALS: PULSE 88; O2SAT 95
== END 2024-11-15 23:53 | disposition home or self-care (01) ==
PROVIDERS: Emergency Provider Physician Assistant
DX: S61.551A Open bite of right wrist, initial encounter (principal); W55.01XA Bitten by cat, initial encounter
CPT/HCPCS: 99283; J9999